=== PATIENT | male | born 1970 | race Asian ===

== ENCOUNTER 2018-01-25 18:09 | Emergency (ER) | payer OTHER ==
[~2018-01-25] VITALS: Ht 162.6 cm; Wt 72.1 kg
--- NOTE | 2018-01-25 20:47 | ED ANIMAL BITE/WOUND CHECK ---
History of Present Illness General Chief Complaint: Laceration Procedure Stated Complaint: DOG BITE TO L FOOT Source: patient Exam Limitations: no limitations Vital Signs & Intake/Output Vital Signs & Intake/Output Vital Signs Date Time Temp Pulse Resp B/P B/P Pulse O2 O2 Flow FiO2 Mean Ox Delivery Rate 01/25 2303 Room Air 01/25 2100 99.8 85 18 146/96 99 Room Air 01/25 1820 97.2 100 18 130/89 100 Room Air Allergies Coded Allergies: No Known Allergies (01/25/18) Reconcile Medications Amoxicillin/Potassium Clav (Augmentin 875-125 Tablet) 875 MG-125 MG TABLET 1 TAB PO BID dog bite Triage Note: 47M ARRIVES S/P DOG ATTACK FROM NEIGHBOR'S [employer]. ARRIVES WITH BLOOD TO PANTS. STATES HE WAS TOLD DOG IS UTD ON SHOTS, WILL RECEIVE REPORT FROM JONATAN SARAH TOMORROW. WOUND TO LEFT FARRELL APPROX 2CM LONG AND GAPING WITH ADIPOSE TISSUE EXPOSED. CLEANED WITH PERODIXE AND STERILE NONSTICK DRSG APPLIED. MEDICATED WITH TETANUS IN TRIAGE AND DECLINES MOTRIN/TYL OFFERED. Triage Nurses Notes Reviewed? yes Onset: Abrupt Duration: minute(s):, hour(s):, constant Timing: recent history Injury Environment: home No Modifying Factors: none HPI: 47-year-old male comes into the emergency room for further evaluation of dog bite to left ankle/an area. Patient reports that he was walking his dog when he got attacked by a neighbor's dog. He reports that this has happened before. He reports that the owners claim the dog is up-to-date on rabies vaccines. His tetanus shot is not up-to-date. Some associated bleeding. He comes in for further evaluation. Denies any trauma anywhere else. Denies any other associated symptoms. (Fredy Shen) Past History Travel History Traveled to [place] past 21 day No Medical History Any Pertinent Medical History? see below for history Neurological: NONE EENT: NONE Cardiovascular: NONE Respiratory: NONE Gastrointestinal: NONE Hepatic: NONE Renal: NONE Musculoskeletal: NONE Psychiatric: NONE Endocrine: NONE Blood Disorders: NONE Tetanus Vaccine: 01/25/18 Surgical History Surgical History: none Psychosocial History What is your primary language Guamanian Tobacco Use: Current Not Daily Daily Tobacco Use Amount/Type: Cigar or Pipe use daily Family History Hx Contributory? No (Fredy Shen) Review of Systems Review of Systems Constitutional: Reports: no symptoms. EENTM: Reports: no symptoms. Respiratory: Reports: no symptoms. Cardiovascular: Reports: no symptoms. GI: Reports: no symptoms. Genitourinary: Reports: no symptoms. Musculoskeletal: Reports: see HPI. Skin: Reports: see HPI. Neurological/Psychological: Reports: no symptoms. Hematologic/Endocrine: Reports: no symptoms. Immunologic/Allergic: Reports: no symptoms. All Other Systems: Reviewed and Negative (Fredy Shen) Physical Exam Physical Exam General Appearance: well developed/nourished, mild distress Head: atraumatic Eyes: Bilateral: normal appearance. Ears, Nose, Throat: normal ENT inspection, hearing grossly normal Neck: normal inspection Respiratory: no respiratory distress Cardiovascular: regular rate/rhythm Back: normal inspection Extremities: 3 cm laceration left farrell Neurologic/Psych: awake, alert, oriented x 3, normal mood/affect Skin: intact, normal color, warm/dry (Fredy Shen) Progress Differential Diagnosis: abscess, cellulitis, joint infection, tenosysnovitis Plan of Care: 01/25/2018 9:38:36 PM Patient clinically looks well. Patient is in no apparent distress. Nontoxic- appearing. Patient was told to confirm the rabies vaccine status of the dog that bit him tomorrow. (Fredy Shen) Departure Departure Disposition: HOME OR SELF CARE Condition: Stable Clinical Impression Primary Impression: Laceration of left lower extremity Secondary Impressions: Dog bite Referrals: Patient Has No Primary Care Dr (PCP/Family) Additional Instructions: Take Augmentin as prescribed. Confirm the vaccination status of the dog to make sure the dog is up-to-date on rabies vaccine. Return if any other concerns worsening symptoms. Please go over all results of today's visit with your primary care doctor. Contact your primary care doctor to let them know you were here in the emergency room. There may be nonspecific findings which may not be related to your visit today here in the emergency room but may require further evaluation and chronic monitoring by your primary care doctor. If you had a laceration today the chance of foreign body always remains. You should follow-up with your primary care doctor for recheck in 3-5 days for a wound check. If you had an x-ray done there is a chance that a fracture could have been missed on initial read and you should follow-up with your primary care doctor for repeat x-rays if symptoms persist. If your blood pressure was elevated here in the emergency room please have rechecked by hyour primary care doctor within the next 48. If you were prescribed a narcotic here in the emergency room or any type of controlled substances you're not allowed to drive while taking this medication or operate any type of heavy machinery. Narcotics can make you feel lightheaded dizziness nausea and can cause constipation. You may need to picker a stool softener. Thank you for choosing [facility] emergency room. Please return to the emergency room immediately if you have any other concerns worsening of symptoms. Departure Forms: Customer Survey General Discharge Information Prescriptions: Current Visit Scripts Amoxicillin/Potassium Clav (Augmentin 875-125 Tablet) 1 TAB PO BID #14 TAB (Fredy Shen) PA/LYE TREATER Co-Sign Statement Statement: ED Attending supervision documentation- [] I saw and evaluated the patient. I have also reviewed all the pertinent lab results and diagnostic results. I agree with the findings and the plan of care as documented in the PA's/LYE TREATER's documentation. [X] I have reviewed the ED Record and agree with the PA's/LYE TREATER's documentation. [] Additions or exceptions (if any) to the PAs/LYE TREATER's note and plan are summarized below: [] (Ronel BAGLEY,Stanislaw Bagley) Procedures Laceration/Wound Repair Progress: 3 cm laceration left lower leg, irrigated with copious amounts of saline and peroxide, 1% lidocaine, 4-5 mL injected, 3. 0 nylon, 4 sutures placed, performed by PA student with my supervision, sterile technique, bacitracin and dry sterile dressing placed, (Fredy Shen)
[2018-01-25 21:00] VITALS: BP 146/96
[2018-01-25] MEDS ORDERED: AUGMENTIN 875-1 EACH PO (21:54)
== END 2018-01-25 22:04 ==
LOC: ERH 18:09
DX: S81.812A Laceration without foreign body, left lower leg, initial encounter (principal); W54.0XXA Bitten by dog, initial encounter; Y92.9 Unspecified place or not applicable; Y93.9 Activity, unspecified
CPT/HCPCS: 90471; 90714